=== PATIENT | male | born 1995 | race Caucasian/White ===

== ENCOUNTER 2016-12-08 09:43 | Emergency (ER) | payer OTHER ==
[~2016-12-08] VITALS: Ht 188 cm; Wt 149.7 kg
[~2016-12-08 09:43] MED LIST: ABILIFY 5 MG TAB5 M1 PO; AMPHETAMINE SAL30 MG PO; CLONAZEPAM 0.50.5 M1 PO; FLUOXETINE HCL60 MG PO; GLUCOPHAGE XR750 M1 PO; LAMICTAL100 MG PO; LEVOTHYROXINE25 MCG PO; LUNESTA3 MG PO; PAROXETINE HCL20 MG PO; PROZAC20 MG PO; WELLBUTRIN 100100 MG PO
[2016-12-08] MEDS ORDERED: MODAFINIL100 MG PO (10:14)
[2016-12-08] MEDS ORDERED: MELATONIN3 MG PO (10:14)
[2016-12-08] MEDS ORDERED: NORVASC 5 MG TAB5 MG PO (10:14)
[2016-12-08] MEDS ORDERED: OXCARBAZEPINE300 MG PO (10:15)
[2016-12-08] MEDS ORDERED: LATUDA80 MG PO (10:15)
[2016-12-08] MEDS ORDERED: PRISTIQ50 MG PO (10:16)
[2016-12-08] MEDS ORDERED: FETZIMA40 MG PO (10:17)
[2016-12-08 10:19] LABS: ABSOLUTE NEUTROPHILS 4.1 thou/uL (1.4-8.2); BASOPHILS 0.4 % (0.0-2.0); EOSINOPHILS 1.5 % (0.0-3.0); HEMATOCRIT 43.6 % (42.0-52.0); HEMOGLOBIN 15.1 gm/dL (14.0-18.0); MANUAL DIFF NO; MCH 28.5 pg (26.0-34.0); MCHC 34.6 g/dL (28.0-37.0); MCV 82.4 fL (80.0-100.0); PLATELET COUNT 302 thou/uL (150-400); POLYS 59.1 % (36.0-66.0); RBC 5.29 mil/uL (4.50-6.00); RDW 12.9 % (10.5-14.5); WBC 6.9 thou/uL (4.0-11.0)
[2016-12-08 10:26] LABS: AMP/METHAMP Negative (Negative); BARBITURATES Negative (Negative); BENZODIAZEPINES Negative (Negative); COCAINE Negative (Negative); METHADONE Negative (Negative); OPIATES Negative (Negative); PCP Negative (Negative); THC POSITIVE (Negative)
[2016-12-08 10:28] LABS: ANION GAP 5 mmol/L (7-16); BUN 12 mg/dL (7-18); CALCIUM 9.6 mg/dL (8.5-10.1); CHLORIDE 103 mmol/L (98-107); CO2 29 mmol/L (21-32); CREATININE 1.1 mg/dL (0.6-1.3); GLUCOSE 114 mg/dL (70-99); POTASSIUM 3.9 mmol/L (3.5-5.1); SODIUM 137 mmol/L (136-145)
[2016-12-08 10:33] LABS: ALBUMIN 4.2 g/dL (3.4-5.0); ALKALINE PHOSPHATASE 90 U/L (46-116); DIRECT BILIRUBIN < 0.1 mg/dL (<0.1-0.3); SALICYLATE < 2.8 mg/dL (2.8-20.0); SGOT 16 U/L (15-37); SGPT 57 U/L (30-65); TOTAL BILIRUBIN 0.3 mg/dL (<0.1-1.0); TOTAL PROTEIN 7.8 g/dL (6.4-8.2)
[2016-12-08 10:34] LABS: ACETAMINOPHEN < 2 ug/mL (10-30)
== END 2016-12-08 12:58 | disposition home or self-care (01) ==
LOC: ER 09:43
PROVIDERS: Emergency Medicine
DX: F32.9 Major depressive disorder, single episode, unspecified (principal); F41.9 Anxiety disorder, unspecified; E11.9 Type 2 diabetes mellitus without complications; F17.210 Nicotine dependence, cigarettes, uncomplicated; F10.99 Alcohol use, unspecified with unspecified alcohol-induced disorder